=== PATIENT | male | born 1990 | race Caucasian/White ===

== ENCOUNTER 2017-04-30 22:23 | Emergency (ER) | payer OTHER ==
[~2017-04-30] VITALS: Ht 193 cm; Wt 100.2 kg
[2017-04-30 22:26] VITALS: Ht 193 cm; Wt 100.2 kg
[2017-04-30] MEDS ORDERED: DiphenhydrAMINE HCL 50 MG/ML VIAL IV STA (22:42)
[2017-04-30] MEDS ORDERED: KETOROLAC TROMETHAMINE 30 MG/ML VIAL IV STA (22:42)
[2017-04-30] MEDS ORDERED: PROCHLORPERAZINE 5 MG/ML 2 ML VIAL IV STA (22:42)
[2017-04-30] MEDS ORDERED: MELO15TA4 PO (22:44)
[2017-04-30] MEDS ORDERED: BACL10TA PO (22:44)
[2017-04-30 23:07] LABS: BASO % 0.1 %; BASO ABS # 0.01 K/uL (0-0.2); EOS % 0.2 %; EOS ABS # 0.02 K/uL (0-0.5); HEMATOCRIT 43.8 % (42-52); HEMOGLOBIN 16.1 g/dL (14.0-18.0); IG# 0.03 K/uL (0.00-0.02); LYMPH % 15.2 %; LYMPH ABS # 1.46 K/uL (1.2-3.4); MEAN CELL VOLUME 87.1 fL (80-100); MEAN CORPUSCULAR HGB CONC 36.8 g/dl (32-36); MEAN PLATELET VOLUME 11.7 fL (7.4-10.4); MONO % 8.3 %; NEUT % 75.9 %; NEUT ABS # 7.28 K/uL (1.4-6.5); PLATELET COUNT 218 K/uL (130-400); RED CELL DISTRIBUTION WIDTH CV 12.3 % (11.5-14.5); RED CELL DISTRIBUTION WIDTH SD 39.3 fL (36.4-46.3)
--- NOTE | 2017-04-30 23:26 | EMERGENCY ROOM VISIT NOTE ---
History First contact with patient: 22:29 Chief Complaint: VOMITING Stated Complaint: MIGRAINE - THROWING UP - SEVERE CHEST PAIN History of Present Illness The patient is a 26 year old male who presents to the Emergency Room with complaints of headaches which have been occurring on-and-off over the past one month and has been constant for the past week. The patient reports he has had occasional headaches in the past, however they have been more frequent over the past month. He has had a constant headache for the past week which is located in the forehead and wraps around to the sides. He rates the discomfort an 8/10 and describes it as a constant, throbbing pain. He has had 2 episodes of vomiting today which he believes may have been due to the, patient of pain and acid reflux. He states that he does have a history of acid reflux and this is usually resolved by Tums. He has not had much to eat over the past few days due to his discomfort. The patient denies any history of headache disorders. He has been taking Tylenol, ibuprofen and baclofen at home without relief. He did take a Zofran today which did not resolve his nausea. The patient states that he recently moved to the area. Prior to moving here, [facility] and diagnosed with an unspecified neurocognitive disorder and told that he should have further workup for this when possible. He does report a history of degenerative disc disease. He denies any other medical problems. He denies fevers, neck pain/stiffness, numbness, weakness, blurred vision, slurred speech, photophobia or phonophobia. Review of Systems A complete 10 point review of systems was reviewed with the patient with pertinent positives and negatives as per history of present illness. All else were negative. Social History Smoking Status: Never Smoker Current/Historical Medications Scheduled Baclofen (Lioresal), 10 MG PO TID Meloxicam (Mobic), 15 MG PO DAILY Omeprazole (Prilosec), 40 MG PO DAILY Physical Exam Vital Signs Date Time Temp Pulse Resp B/P (MAP) Pulse Ox O2 Delivery O2 Flow Rate FiO2 05/01/17 00:14 36.4 77 18 132/85 98 05/01/17 00:05 77 132/85 98 Room Air 04/30/17 23:17 72 18 144/76 95 Room Air 04/30/17 22:26 36.4 77 16 140/88 98 Room Air Physical Exam VITALS: Vitals are noted on the nurse's note and reviewed by myself. Vital signs stable. GENERAL: This is a 26-year-old male, in no acute distress, nondiaphoretic, well- developed well-nourished. HEAD: Normocephalic atraumatic. EARS: External auditory canals clear, tympanic membranes pearly price without erythema or effusion bilaterally. EYES: Pupils equal round and reactive to light and accommodation. Extraocular movements intact. MOUTH: Mucous membranes moist. Tonsils are not enlarged. Pharynx without erythema or exudate. NECK: Supple without nuchal rigidity. No lymphadenopathy. No meningismus. HEART: Regular rate and rhythm without murmurs gallops or rubs. LUNGS: Clear to auscultation bilaterally without wheezes, rales or rhonchi. ABDOMEN: Soft, nontender to palpation. MUSCULOSKELETAL: Strength 5/5 throughout. NEURO: Patient was alert and oriented to person place and time. No focal neurological deficits. Medical Decision & Procedures ER Provider Diagnostic Interpretation: CT HEAD: Unremarkable exam. Radiologist: Valdo Burgso MD Laboratory Results 04/30/17 22:50 Red Blood Count 5.03, Mean Corpuscular Volume 87.1, Mean Corpuscular Hemoglobin 32.0, Mean Corpuscular Hemoglobin Concent 36.8, Mean Platelet Volume 11.7, Neutrophils (%) (Auto) 75.9, Lymphocytes (%) (Auto) 15.2, Monocytes (%) (Auto) 8.3, Eosinophils (%) (Auto) 0.2, Basophils (%) (Auto) 0.1, Neutrophils # (Auto) 7.28, Lymphocytes # (Auto) 1.46, Monocytes # (Auto) 0.80, Eosinophils # (Auto) 0.02, Basophils # (Auto) 0.01 04/30/17 22:50 Test 04/30/17 22:45 04/30/17 22:50 Urine Color YELLOW Urine Appearance CLOUDY (CLEAR) Urine pH 8.0 (4.5-7.5) Urine Specific [place] 1.017 (1.000-1.030) Urine Protein NEG (NEG) Urine Glucose (UA) NEG (NEG) Urine Ketones NEG (NEG) Urine Occult Blood NEG (NEG) Urine Nitrite NEG (NEG) Urine Bilirubin NEG (NEG) Urine Urobilinogen NEG (NEG) Urine Leukocyte Esterase TRACE (NEG) Urine WBC (Auto) 1-5 /hpf (0-5) Urine RBC (Auto) 0-4 /hpf (0-4) Urine Hyaline Casts (Auto) 0 /lpf (0-5) Urine Epithelial Cells (Auto) 0-5 /lpf (0-5) Urine Bacteria (Auto) NEG (NEG) White Blood Count 9.60 K/uL (4.8-10.8) Red Blood Count 5.03 M/uL (4.7-6.1) Hemoglobin 16.1 g/dL (14.0-18.0) Hematocrit 43.8 % (42-52) Mean Corpuscular Volume 87.1 fL (80-100) Mean Corpuscular Hemoglobin 32.0 pg (25-34) Mean Corpuscular Hemoglobin Concent 36.8 g/dl (32-36) Platelet Count 218 K/uL (130-400) Mean Platelet Volume 11.7 fL (7.4-10.4) Neutrophils (%) (Auto) 75.9 % Lymphocytes (%) (Auto) 15.2 % Monocytes (%) (Auto) 8.3 % Eosinophils (%) (Auto) 0.2 % Basophils (%) (Auto) 0.1 % Neutrophils # (Auto) 7.28 K/uL (1.4-6.5) Lymphocytes # (Auto) 1.46 K/uL (1.2-3.4) Monocytes # (Auto) 0.80 K/uL (0.11-0.59) Eosinophils # (Auto) 0.02 K/uL (0-0.5) Basophils # (Auto) 0.01 K/uL (0-0.2) RDW Standard Deviation 39.3 fL (36.4-46.3) RDW Coefficient of Variation 12.3 % (11.5-14.5) Immature Granulocyte % (Auto) 0.3 % Immature Granulocyte # (Auto) 0.03 K/uL (0.00-0.02) Anion Gap 5.0 mmol/L (3-11) Est Creatinine Clear Calc Drug Dose 155.7 ml/min Estimated GFR () 137.7 Estimated GFR (Non- 118.8 BUN/Creatinine Ratio 8.1 (10-20) Calcium Level 9.2 mg/dl (8.5-10.1) Total Bilirubin 0.9 mg/dl (0.2-1) Aspartate Amino Transf (AST/SGOT) 15 U/L (15-37) Alanine Aminotransferase (ALT/SGPT) 41 U/L (12-78) Alkaline Phosphatase 51 U/L (45-117) Total Protein 8.0 gm/dl (6.4-8.2) Albumin 4.3 gm/dl (3.4-5.0) Globulin 3.7 gm/dl (2.5-4.0) Albumin/Globulin Ratio 1.2 (0.9-2) Lipase 104 U/L (73-393) Thyroid Stimulating Hormone (TSH) 0.574 uIu/ml (0.300-4.500) Medications Administered Medications (Trade) Dose Ordered Sig/Terri Route Start Time Stop Time Status Last Admin Dose Admin Prochlorperazine Edisylate (Compazine Inj) 10 mg NOW STAT IV 04/30/17 22:42 04/30/17 22:47 DC 04/30/17 23:03 10 MG Diphenhydramine HCl (Benadryl Inj) 25 mg NOW STAT IV 04/30/17 22:42 04/30/17 22:47 DC 04/30/17 23:02 25 MG Ketorolac Tromethamine (Toradol Inj) 30 mg NOW STAT IV 04/30/17 22:42 04/30/17 22:47 DC 04/30/17 23:02 30 MG Dexamethasone Sodium Phosphate (Decadron Inj) 10 mg NOW STAT IV 04/30/17 23:54 04/30/17 23:55 DC 05/01/17 00:01 10 MG ED Course The patient was evaluated as above. Labs were drawn and IV access was obtained. Patient was medicated with IV Compazine, Benadryl and Toradol. CT of the head was performed and read by radiology as above. Patient was reevaluated and felt much better. A dose of Decadron was ordered. Discharge instructions were reviewed with the patient. The patient verbalized understanding of my assessment and treatment plan and was discharged home in good condition. Medical Decision The differential diagnosis includes acute intracranial bleed, meningitis, encephalitis, mass or mass effect, sinusitis, infection, tumor, headache, temporal arteritis and carbon monoxide exposure, and migraine. The patient is a 26-year-old male who presents today complaining of intermittent headaches with constant symptoms for the past week. Patient did have 2 episodes of vomiting today which are likely related to the headache, although he does have a history of acid reflux and feels this may have contributed to the vomiting. The patient is well-appearing. There is no evidence of meningitis or encephalitis on exam. There are no neurological deficits. Labs revealed no leukocytosis or concerning electrolyte abnormalities. CT of the head was unremarkable. The patient's symptoms may be due to tension headache or other headache disorder. He will need to be further evaluated as an outpatient and [facility] He was treated with Compazine, Benadryl and Toradol with full relief of his headache in the ED. I did recommend that he start a PPI for GERD. He will return here with any worsening or new/concerning symptoms. Based on the patient's presentation and work up, I feel the patient is stable for outpatient treatment. The patient was educated to return to the emergency department for any worsening of their current condition or new/concerning symptoms. He will follow up with his PCP. Medication Reconcilliation Current Medication List: was personally reviewed by me Blood Pressure Screening Patient's blood pressure: Elevated blood pressure Blood pressure disposition: Elevated BP felt to be situational Impression Primary Impression: Headache Departure Information Dispostion Home / Self-Care Condition GOOD Prescriptions Omeprazole (PRILOSEC) 40 Mg Cap 40 MG PO DAILY for 14 Days, #14 CAP Prov: Marlena Ivory ., JUDY 04/30/17 Referrals No Doctor, Assigned (PCP) Patient Instructions ED GERD, My [facility] Additional Instructions You have been treated in the Emergency Department for a Headache. You have received pain medicine in the emergency department which impairs your ability to operate a vehicle. It is illegal for you to drive after receiving these medicines. For pain control, you can use the following [id number] medicines (if >12 yo): - Regular strength (325mg/tab) Tylenol (acetaminophen) 2 tabs every 4-6 hours as needed. Do not exceed 12 tablets in a 24 hour period. Avoid taking more than 4 grams (4000 mg) of Tylenol per day. This includes any other sources of acetaminophen you may take on a regular basis. - Regular strength (200 mg/tab) Advil (ibuprofen) 1-2 tabs every 4-6 hours as needed. Do not exceed a dose of 3200 mg per day. You should relax in a quiet, dark place for the rest of the day. Avoid any possible triggers including: cigarette smoke, caffeine, nicotine, chocolate, wine, beer, loud noises or music, or bright lights. You should take Prilosec as prescribed. This is a drug that will help with any possible indigestion that might be contributing to your pain/discomfort. You should take this medicine EVERY day for the best results. This medicine is not intended to be used for immediate relief of symptoms, but rather to reduce the risk of recurrence of symptoms. Avoid acidic foods such as tomato based products, citrus, alcohol, caffeine, spicy foods, as these may worsen your symptoms. Contact the ID office to schedule a follow-up within 1 week Return to the Emergency Department if your current symptoms worsen despite treatment course outlined above, or if you develop any of the following symptoms : intractable pain despite aforementioned treatment course, visual disturbances , loss of vision, unilateral weakness or facial drooping, slurring of speech, loss of coordination, or loss of consciousness. Problem Qualifiers Primary Impression: Headache Headache type: unspecified Headache chronicity pattern: acute headache Intractability: not intractable Qualified Codes: R51 - Headache
[2017-04-30 23:27] LABS: ALBUMIN 4.3 gm/dl (3.4-5.0); CALCIUM 9.2 mg/dl (8.5-10.1); CREATININE 0.89 mg/dl (0.60-1.40); POTASSIUM 3.6 mmol/L (3.5-5.1)
[2017-04-30] MEDS ORDERED: DEXAMETHASONE SOD INJ 4 MG/ML VIAL IV STA (23:54)
[2017-04-30] MEDS ORDERED: OMEP40CA41 PO (23:56)
[2017-05-01 00:14] VITALS: BP 132/85; PULSE 77; TEMP 36.4; O2SAT 98
--- NOTE | 2017-05-01 06:23 | DIAGNOSTIC IMAGING REPORT ---
HEAD WITHOUT CONTRAST (CT) CT DOSE: 614.27 mGy.cm HISTORY: Mental status change headache, vomiting TECHNIQUE: Multiaxial CT images of the head were performed without the use of intravenous contrast. A dose lowering technique was utilized adhering to the principles of ALARA. Comparison: None. Findings: The paranasal sinuses and mastoid air cells are clear. The calvarium and skull base are intact. The ventricles and sulci are within normal limits. There is no mass, hematoma, midline shift, or acute infarct. Impression: No acute intracranial abnormality. The above report was generated using voice recognition software. It may contain grammatical, syntax or spelling errors. Electronically signed by: Jose Tan M.D. 05/01/2017 6:22 AM Dictated Date/Time: 05/01/2017 6:21 AM
== END 2017-05-01 00:14 | disposition home or self-care (01) ==
LOC: C.EDB 22:25 → C.EDA 05-01 00:14
DX: R51 Headache (principal); K21.9 Gastro-esophageal reflux disease without esophagitis; R03.0 Elevated blood-pressure reading, without diagnosis of hypertension